=== PATIENT | female | born 1965 | race Caucasian/White ===

== ENCOUNTER 2019-04-30 15:24 | Emergency (ER) | payer OTHER ==
[~2019-04-30] VITALS: Ht 165.1 cm; Wt 52.2 kg
[2019-04-30 16:17] LABS: BASOPHILS # (AUTO) 0.1 X10'3 (0-0.2); BASOPHILS % (AUTO) 0.8 % (0-1); EOSINOPHILS # (AUTO) 0.1 X10'3 (0-0.9); EOSINOPHILS % (AUTO) 1.2 % (0-6); HEMOGLOBIN 13.8 g/dl (12.0-16.0); LYMPHOCYTES # (AUTO) 3.1 X10'3 (1.1-4.8); LYMPHOCYTES % (AUTO) 39.8 % (21-51); MEAN CORPUSCULAR HEMOGLOBIN 33.4 PG (27.0-31.0); MEAN CORPUSCULAR HGB CONC 35.5 g/dL (33.0-36.5); MEAN PLATELET VOLUME 8.5 FL (7.4-10.4); MONOCYTES # (AUTO) 0.3 X10'3 (0-0.9); MONOCYTES % (AUTO) 4.1 % (2-12); NEUTROPHILS # (AUTO) 4.3 X10'3 (1.8-7.7); NEUTROPHILS % (AUTO) 54.1 % (42-75); PLATELET COUNT 237 X10'3 (140-440); RED BLOOD COUNT 4.14 X10'6 (4.20-5.60); RED CELL DISTRIBUTION WIDTH 12.9 % (11.5-14.5); WHITE BLOOD COUNT 7.9 X10'3 (4.5-11.0)
[2019-04-30 16:31] LABS: ALANINE AMINOTRANSFERASE 34 U/L (12-78); ALBUMIN 3.8 G/DL (3.4-5.0); ALBUMIN/GLOBULIN RATIO 1.1 (1.1-1.5); ALKALINE PHOSPHATASE 49 IU/L (46-116); ANION GAP 8 (8-16); ASPARTATE AMINO TRANSFERASE 15 U/L (10-37); BILIRUBIN,TOTAL 0.3 MG/DL (0.1-1.0); BLOOD UREA NITROGEN 16 MG/DL (7-18); BUN/CREATININE RATIO 18.8 (6.6-38.0); CALCIUM 9.2 MG/DL (8.5-10.1); CHLORIDE 100 MMOL/L (99-107); CREATININE 0.85 MG/DL (0.40-0.90); GLUCOSE 92 MG/DL (70-104); POTASSIUM 3.3 MMOL/L (3.5-5.1); SODIUM 138 MMOL/L (135-145); TOTAL CARBON DIOXIDE 30.5 MMOL/L (24-32); TOTAL PROTEIN 7.2 G/DL (6.4-8.2); eGFR 70 ML/MIN
[2019-04-30] MEDS ORDERED: normal saline 1000ML IV soln IVB ONE ×2 (17:00)
[2019-04-30] MEDS ORDERED: metoclopramide 5 mg/ml inj IV ONE ×2 (17:00→18:20)
[2019-04-30] MEDS ORDERED: ketorolac trometh. 30mg/ml inj. IV ONE (17:00)
[2019-04-30] MEDS ORDERED: diphenhydrAMINE 50 mg/ml inj IV ONE ×2 (17:00→18:20)
[2019-04-30] MEDS ORDERED: DOXY100C43 PO (18:18)
[2019-04-30] MEDS ORDERED: POTA20TA19 PO (18:18)
[2019-04-30 18:42] LABS: CLARITY,URINE CLEAR (Clear); COLOR,URINE YELLOW (Yellow); GLUCOSE, URINE NEGATIVE (Neg); KETONES,URINE 15 mg/dl (Neg); LEUKOCYTE ESTERASE ,URINE NEGATIVE (Neg); NITRITES, URINE NEGATIVE (Neg); OCCULT BLOOD,URINE NEGATIVE (Neg); PROTEIN,URINE NEGATIVE (Neg); UROBILINOGEN,URINE 0.2 E.U/dL (0.2-1.0)
--- NOTE | 2019-04-30 18:45 | NUR ---
PT HAS 22G IV GETTING IV FLUID SLOWLY ,WILL DISCHARGE PT WHEN PT IV FLUID IS FINISHED.
[2019-04-30 18:48] LABS: UA COLLECTION TYPE CLN CATCH MIDSTREAM
[2019-04-30 20:55] VITALS: BP 138/89
== END 2019-04-30 20:59 | disposition home or self-care (01) ==
LOC: ER 15:25
DX: L03.115 Cellulitis of right lower limb (principal); G43.909 Migraine, unspecified, not intractable, without status migrainosus; E87.6 Hypokalemia; H92.01 Otalgia, right ear; Z87.891 Personal history of nicotine dependence; Z98.890 Other specified postprocedural states; Z88.5 Allergy status to narcotic agent; Z88.0 Allergy status to penicillin; Z88.1 Allergy status to other antibiotic agents; Z88.8 Allergy status to other drugs, medicaments and biological substances; Z79.899 Other long term (current) drug therapy
CPT/HCPCS: 36415; 80053; 81003; 85025; 85610; 96374; 96375; 96376; 99283; J1200; J1885; J2765; J7030

== ENCOUNTER 2021-09-18 09:16 | Day surgery (SDC) | payer OTHER ==
[2021-09-18] VITALS (15 sets, daily range): BP systolic 92–123; BP diastolic 54–86
[~2021-09-18] VITALS: Ht 157.5 cm; Wt 49.9 kg
[~2021-09-18 09:16] MED LIST: ALBU6.7H9; ATOR10TA70 PO; BUPR-317 PO; ESTR2TAB6 PO; FLUT16SP26; HYDR25TA5 PO; LEVO112T5 PO; LOSA50TA64 PO; OMEP-50 PO; famotidine 20mg tablet PO ONE; ringers solution, lacted 1,000 ML IV SCH
[2021-09-18] MEDS ORDERED: labetalol 20mg/4ml (5mg/ml) syringe IV PRN (10:35)
[2021-09-18] MEDS ORDERED: ondansetron/PF 4mg/2ml inj IV PRN (10:35)
[2021-09-18] MEDS ORDERED: ringers solution, lacted 1,000 ML IV SCH (10:35)
[2021-09-18] MEDS ORDERED: fentaNYL/PF 50MCG/1 ML 2ML syringe IV PRN (10:35)
[2021-09-18] MEDS ORDERED: HYDROmorphone/PF 0.2 MG/ML SYRINGE IV PRN ×2 (10:35)
[2021-09-18] MEDS ORDERED: hydrALAZINE 20mg/ml inj. IV PRN (10:35)
[2021-09-18 11:15] LABS: BASOPHILS % (AUTO) 0.5 % (0-1); EOSINOPHILS # (AUTO) 0.1 X10'3 (0-0.9); EOSINOPHILS % (AUTO) 1.3 % (0-6); LYMPHOCYTES # (AUTO) 2.1 X10'3 (1.1-4.8); LYMPHOCYTES % (AUTO) 43.5 % (21-51); MEAN CORPUSCULAR HEMOGLOBIN 32.9 PG (27.0-31.0); MEAN CORPUSCULAR HGB CONC 34.1 g/dL (33.0-36.5); MEAN CORPUSCULAR VOLUME 96.6 FL (78-98); MEAN PLATELET VOLUME 8.2 FL (7.4-10.4); MONOCYTES # (AUTO) 0.3 X10'3 (0-0.9); MONOCYTES % (AUTO) 6.8 % (2-12); NEUTROPHILS # (AUTO) 2.3 X10'3 (1.8-7.7); NEUTROPHILS % (AUTO) 47.9 % (42-75); PRE OP HEMATOCRIT 41.8 % (35.0-45.0); PRE OP HEMOGLOBIN 14.2 g/dL (12.0-16.0); PRE OP PLATELET COUNT 238 X10'3 (140-440); RED BLOOD COUNT 4.32 X10'6 (4.20-5.60); RED CELL DISTRIBUTION WIDTH 14.1 % (11.5-14.5)
[2021-09-18] MEDS ORDERED: clindamycin-Cleocin 900mg/D5W 50 ML IV ONE (11:27)
[2021-09-18] MEDS ORDERED: BUPIVAcaine/PF 2.5 mg/ml (0.25%) 30ml vial ONE (11:28)
[2021-09-18 11:29] LABS: ALBUMIN 3.7 G/DL (3.4-5.0); ALBUMIN/GLOBULIN RATIO 1.2 (1.1-1.5); ALKALINE PHOSPHATASE 56 IU/L (46-116); BLOOD UREA NITROGEN 17 MG/DL (7-18); BUN/CREATININE RATIO 22.1 (6.6-38.0); CALCIUM 8.6 MG/DL (8.5-10.1); CHLORIDE 101 MMOL/L (99-107); CREATININE 0.77 MG/DL (0.40-0.90); PRE OP ALT 26 U/L (30-65); PRE OP ANION GAP 8 (8-16); PRE OP AST 14 U/L (10-37); PRE OP BILIRUB, TOTAL 0.3 MG/DL (0.0-1.0); PRE OP GLUCOSE 84 MG/DL (70-104); PRE OP POTASSIUM 3.5 MMOL/L (3.4-5.1); PRE OP SODIUM 140 MMOL/L (135-145); TOTAL CARBON DIOXIDE 31.5 MMOL/L (24-32); TOTAL PROTEIN 6.8 G/DL (6.4-8.2); eGFR 78 ML/MIN
[2021-09-18] MEDS ORDERED: sevoflurane 250ml liquid IH ONE (12:25)
[2021-09-18] MEDS ORDERED: dexmedetomidin/NS 400mcg/100mL BOTTLE IV ONE (12:25)
[2021-09-18] MEDS ORDERED: neostigmine methylsulfate 1 MG/ML 10ml vial ONE (12:25)
[2021-09-18] MEDS ORDERED: dexamethasone sod phosphate 10mg/ml inj ONE (12:25)
[2021-09-18] MEDS ORDERED: ondansetron/PF 4mg/2ml inj ONE (12:39)
[2021-09-18] MEDS ORDERED: propofol inj 20 ML IV ONE (12:39)
[2021-09-18] MEDS ORDERED: fentaNYL/PF 50MCG/1 ML 2ML syringe ONE (12:39)
[2021-09-18] MEDS ORDERED: LIDOcaine 2% (20mg/ml) 5ml vial ONE (12:39)
[2021-09-18] MEDS ORDERED: rocuronium 10mg/ml inj IV ONE (12:39)
[2021-09-18] MEDS ORDERED: glycopyrrolate 0.2mg/ml inj ONE (12:39)
[2021-09-18] MEDS ORDERED: midazolam 1 mg/ML 2ml injection ONE (12:39)
--- NOTE | 2021-09-18 14:20 | NUR ---
Received from OR via [facility], accompanied by Anesthesiologist CELESTINE and report given by Anesthesiolgist. 10L MASK, 98% SATURATED, 22G RIGHT HAND, RUNNING LR @100. 3 LAP SITES ABDOMEN, CDI. VSS Addendum: 09/18/21 at 1433 by Rober Chua RN, RN Amended: Links added.
[2021-09-18] MEDS: fentaNYL/PF 50MCG/1 ML 2ML syringe IV PRN ×2 (15:03→15:31)
[2021-09-18] MEDS ORDERED: HYDROcodone/acetaminophen 10/325mg tab PO ONE (15:05)
--- NOTE | 2021-09-18 16:30 | NUR ---
ALL DISCHARGE CRITERIA HAS BEEN MET. VSS, PAIN AT A TOLERABLE LEVEL, ABLE TO SAFELY AMBULATE AND TRANSFER SELF. IV TAKEN OUT WITHOUT ANY COMPLICATIONS. ALL DISCHARGE INSTRUCTIONS COVERED WITH PATIENT AND ALL QUESTIONS ANSWERED. PATIENT TAKEN OUT VIA WHEELCHAIR TO PERSONAL VEHICLE WHERE FAMILY/FRIEND DROVE PATIENT HOME. Addendum: 09/18/21 at 1637 by Rober Chua RN, RN Amended: Links added.
== END 2021-09-18 16:30 | disposition home or self-care (01) ==
LOC: PRE-OP 09:16 → PAS 16:30
PROVIDERS: ATTEND Surgery
DX: K40.20 Bilateral inguinal hernia, without obstruction or gangrene, not specified as recurrent (principal); E03.9 Hypothyroidism, unspecified; F41.0 Panic disorder [episodic paroxysmal anxiety]; F31.9 Bipolar disorder, unspecified; G43.909 Migraine, unspecified, not intractable, without status migrainosus; I10 Essential (primary) hypertension; K21.9 Gastro-esophageal reflux disease without esophagitis; Z90.710 Acquired absence of both cervix and uterus; Z98.890 Other specified postprocedural states; Z79.899 Other long term (current) drug therapy; Z20.822 Contact with and (suspected) exposure to COVID-19; Z87.891 Personal history of nicotine dependence; Z72.89 Other problems related to lifestyle; Z88.8 Allergy status to other drugs, medicaments and biological substances; Z88.0 Allergy status to penicillin; Z88.5 Allergy status to narcotic agent; Z88.1 Allergy status to other antibiotic agents
CPT/HCPCS: 36415; 49650; 80053; 85025; 87635; 93005; C1758; C1781; C9803; J1100; J1170; J2250; J2405; J2704; J2710; J3010; J3490; J7030; J7120; S2900; Z7506; Z7508; Z7512; A4215; A4618